=== PATIENT | male | born 1970 | race Caucasian/White ===

== ENCOUNTER 2019-04-23 14:13 | Emergency (ER) | payer BC ==
[~2019-04-23] VITALS: Ht 170.2 cm; Wt 86.2 kg
[~2019-04-23 14:13] MED LIST: ATEN-171; BENA40TA8; GEMF600T; HYDR12.519
--- NOTE | 2019-04-23 14:30 | NUR ---
DIFFUSE ABDOMINAL PAIN R/T LOWER BACK X 2 DAYS. WORST TODAY. PT AAOX4, VSS, RR EVEN & UNLABORED. DENIES CP, SOB, DIZZINESS, N/V/D AT THIS TIME. AWAITING EVAL BY [facility]/PA & WILL CONT TO MONITOR.
[2019-04-23 15:17] LABS: BASOPHILS # (AUTO) 0.1 /CMM (0.0-0.2); BASOPHILS % (AUTO) 0.7 % (0.0-2.0); EOSINOPHILS % (AUTO) 0.6 % (0.0-6.0); HEMATOCRIT 47 % (39-51); HEMOGLOBIN 15.9 g/dL (13.5-17.5); LYMPHOCYTES # (AUTO) 2.7 /CMM (0.8-4.8); MEAN CORPUSCULAR HGB CONC 34 g/dl (31.0-36.0); MEAN CORPUSCULAR VOLUME 86 fL (80-96); MONOCYTES # (AUTO) 1.1 /CMM (0.1-1.30); NEUTROPHILS # (AUTO) 8.3 /CMM (1.8-8.9); NEUTROPHILS % (AUTO) 67.7 % (43.0-81.0); PLATELET COUNT (AUTO) 245 /CMM (150-450); RED BLOOD CELL COUNT(AUTO) 5.47 MIL/uL (4.5-6.0); WHITE BLOOD COUNT (AUTO) 12.3 K/uL (4.3-11.0)
[2019-04-23 15:20] LABS: APPEARANCE,URINE Clear (CLEAR); BILIRUBIN,URINE Negative (NEGATIVE); BLOOD, URINE Trace-lysed Ery/uL (NEGATIVE); COLOR,URINE Yellow (YELLOW); KETONES,URINE Negative (NEGATIVE); LEUKOCYTE ESTERASE ,URINE Negative (NEGATIVE); NITRITE, URINE Negative (NEGATIVE); PROTEIN,URINE Negative (NEGATIVE); UGLUCOSE 500 MG/DL mg/dL (NEGATIVE); UROBILINOGEN,URINE 0.2 EU/dL (0.2)
[2019-04-23 15:21] LABS: CALCIUM, SERUM 9.4 mg/dL (8.5-10.1)
[2019-04-23 15:25] LABS: BACTERIA,URINE Rare /HPF (None Seen); RBC,URINE 0-2 /HPF (0-2); SQUAMOUS EPITHELIAL CELL,UR Rare /HPF (None Seen); WBC,URINE 0-2 /HPF (0-3)
[2019-04-23 15:28] LABS: ALBUMIN 3.7 g/dL (3.4-5.0); BILIRUBIN,DIRECT 0.1 mg/dL (0.0-0.2); BILIRUBIN,TOTAL 0.7 mg/dL (0.2-1.0); TOTAL PROTEIN, SERUM 8.3 g/dL (6.4-8.2)
[2019-04-23] MEDS ORDERED: BISACODYL SUPP (10 MG) 10 MG/SUPP.RECT SUPP.RECT RC ONE ×2 (16:00→16:06)
[2019-04-23] MEDS ORDERED: POTASSIUM CHLORIDE 20 MEQ TAB.PRT.SR PO ONE ×3 (16:00→16:07)
--- NOTE | 2019-04-23 16:12 | NUR ---
PT REFUSED MED, WANTS TO TALK TO DR. GARCIA FIRST, DR. GARCIA AWARE.
--- NOTE | 2019-04-23 16:53 | NUR ---
MEDICATED PER ERMD ORDER, PT RUDY WELL.
--- NOTE | 2019-04-23 17:11 | NUR ---
IV removed. Catheter intact and site benign. Pressure and 4x4 applied to site. No bleeding noted.Patient discharged to home in stable condition. Written and verbal after care instructions given. Patient verbalizes understanding of instruction.
--- NOTE | 2019-04-23 17:17 | NUR ---
Patient discharged to home in stable condition. Written and verbal after care instructions given. Patient verbalizes understanding of instruction.
[2019-04-23 17:18] VITALS: BP 130/74
== END 2019-04-23 17:18 | disposition home or self-care (01) ==
LOC: ER 14:15
DX: K59.00 Constipation, unspecified (principal); E87.6 Hypokalemia; I10 Essential (primary) hypertension; E03.9 Hypothyroidism, unspecified; E11.9 Type 2 diabetes mellitus without complications; E78.00 Pure hypercholesterolemia, unspecified; F10.10 Alcohol abuse, uncomplicated; I44.0 Atrioventricular block, first degree; Y90.9 Presence of alcohol in blood, level not specified
CPT/HCPCS: 36415; 80048-TC; 80076-TC; 81000-TC; 83690-TC; 85025-TC

== ENCOUNTER 2020-04-08 20:26 | Emergency (ER) | payer BC, MEDICAID ==
[~2020-04-08] VITALS: Ht 170.2 cm; Wt 94.3 kg
[2020-04-08 20:33] VITALS: BP 135/57
--- NOTE | 2020-04-08 20:36 | NUR ---
PATIENT CAME TO ER BIB DAUGHTER TO BED 9 C/O RIGHT FOOT PAIN. PATIENT STATES THAT HE DROPPED A HEAVY HERNANDEZ ON HIS FOOT, LANDING ON THE MEDIAL CUNEIFORM, AND RADIATES TO THE 1ST DIGIT TOE. SENSATIONS FELT EQUALLY ON BILATERALLY EXTREMITIES. BILATERAL PEDAL PULSES PALPABLE EQUALLY AND STRONG. SWOLLEN RIGHT FOOT, COMPARED TO THE LEFT. AMBULATES WITH A LIMP. AAOX4. NO SOB. BREATHING EVENLY AND UNLABORED ON ROOM AIR.
[2020-04-08] MEDS ORDERED: ONDANSETRON 4 MG TAB.RAPDIS ONE (20:42)
[2020-04-08] MEDS ORDERED: HYDROCODONE/APAP 10/325MG 1 EA TABLET ONE (20:42)
[2020-04-08] MEDS: ONDANSETRON 4 MG TAB.RAPDIS SL ONE (20:44)
[2020-04-08] MEDS: HYDROCODONE/APAP 10/325MG 1 EA TABLET PO ONE (20:45)
--- NOTE | 2020-04-08 21:19 | NUR ---
Called Joanna for stat xray read
--- NOTE | 2020-04-08 21:29 | NUR ---
Patient discharged to home in stable condition. Written and verbal after care instructions given. Patient verbalizes understanding of instruction and RX. Pt given crutches. Pt ambulated through E.D. using crutches.
== END 2020-04-08 21:50 | disposition home or self-care (01) ==
LOC: ER 20:26
DX: S92.514A Nondisplaced fracture of proximal phalanx of right lesser toe(s), initial encounter for closed fracture (principal); I10 Essential (primary) hypertension; E11.9 Type 2 diabetes mellitus without complications; E78.00 Pure hypercholesterolemia, unspecified; Z98.890 Other specified postprocedural states; Z79.899 Other long term (current) drug therapy; W20.8XXA Other cause of strike by thrown, projected or falling object, initial encounter; Y93.89 Activity, other specified; Y92.89 Other specified places as the place of occurrence of the external cause; Y99.8 Other external cause status
CPT/HCPCS: 29515; 73630; 99283; Q0162

== ENCOUNTER 2022-10-15 13:54 | Emergency (ER) | payer BC, MEDICAID ==
[~2022-10-15] VITALS: Ht 167.6 cm; Wt 90.7 kg
--- NOTE | 2022-10-15 14:05 | NUR ---
EKG DONE AT BED SIDE
--- NOTE | 2022-10-15 14:10 | NUR ---
RECEIVED PT 52 YRS MALE WALKING IN FROM HOME C/O CHEST PAIN 2-3 DAYS AWKE AND ALERT
--- NOTE | 2022-10-15 15:39 | NUR ---
BLOOD DROW BY LAB TACH
[2022-10-15 15:40] LABS: BASOPHILS % (AUTO) 0.5 % (0.0-2.0); EOSINOPHILS % (AUTO) 1.2 % (0.0-6.0); HEMATOCRIT 46 % (39-51); HEMOGLOBIN 15.1 g/dL (13.5-17.5); LYMPHOCYTES # (AUTO) 2.7 K/uL (0.8-4.8); LYMPHOCYTES % (AUTO) 32.6 % (20.0-44.0); MEAN CORPUSCULAR HGB CONC 33 g/dl (31.0-36.0); MEAN CORPUSCULAR VOLUME 87 fL (80-96); MONOCYTES # (AUTO) 0.5 K/uL (0.1-1.30); MONOCYTES % (AUTO) 5.6 % (2.0-12.0); NEUTROPHILS % (AUTO) 60.1 % (43.0-81.0); PLATELET COUNT (AUTO) 251 K/uL (150-450); RED BLOOD CELL COUNT(AUTO) 5.22 MIL/uL (4.5-6.0); WHITE BLOOD COUNT (AUTO) 8.4 K/uL (4.3-11.0)
[2022-10-15 15:55] LABS: ALANINE AMINOTRANSFERASE 24 U/L (12-78); ALBUMIN 3.9 g/dL (3.4-5.0); ALKALINE PHOSPHATASE 68 U/L (46-116); ASPARTATE AMINOTRANSFERASE 14 U/L (15-37); BILIRUBIN,DIRECT 0.1 mg/dL (0.0-0.2); BILIRUBIN,TOTAL 0.3 mg/dL (0.2-1.0); CALCIUM, SERUM 9.6 mg/dL (8.5-10.1); CARBON DIOXIDE 26 mmol/L (21-32); CHLORIDE 105 mmol/L (98-107); GLUCOSE 170 mg/dL (74-106); POTASSIUM 3.9 mmol/L (3.5-5.1); SODIUM SERUM 138 mmol/L (136-145); TOTAL PROTEIN, SERUM 7.8 g/dL (6.4-8.2); UREA NITROGEN, BLOOD 19 mg/dL (7-18)
--- NOTE | 2022-10-15 16:41 | NUR ---
VITAL SIGNS WITHIN NORMAL LIMITS.
--- NOTE | 2022-10-15 17:40 | NUR ---
BLOOD DROW FOR 2ND TROPONIN
[2022-10-15 18:48] VITALS: BP 126/73
--- NOTE | 2022-10-15 18:49 | NUR ---
Patient discharged to home in stable condition. Written and verbal after care instructions given. Patient verbalizes understanding of instruction.
== END 2022-10-15 18:49 | disposition home or self-care (01) ==
LOC: ER 14:02
DX: R07.89 Other chest pain (principal); I44.0 Atrioventricular block, first degree; I10 Essential (primary) hypertension; E11.9 Type 2 diabetes mellitus without complications; E78.00 Pure hypercholesterolemia, unspecified; Z79.899 Other long term (current) drug therapy
CPT/HCPCS: 99285; 71045; 93005; 85025; 80048; 80076; 85378; 36415; 84484 ×2; J7030